=== PATIENT | female | born 1960 | race Caucasian/White ===

== ENCOUNTER 2024-12-07 11:37 | Emergency (ER) | payer BC, SELFPAY ==
[2024-12-07 11:43] VITALS: BP 138/87
[2024-12-07 11:49] VITALS: BP 138/87
[2024-12-07 12:00] VITALS: BP 128/84
--- NOTE | 2024-12-07 12:01 | ED.GENMED ---
History of Present Illness
General
Chief Complaint: Chest Pain
Source: patient
Exam Limitations: none
Time Seen by Provider: 12/07/24 11:54
History of Present Illness
History of Present Illness:
64yoF with history of hypertension, hyperlipidemia, and obesity presenting via EMS for evaluation of pain. 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
Pain started to radiate throughout her chest and into her back. She became clammy. She went to the bathroom and felt like her heart was racing. She told the dentist that she works with symptoms and was sent to the ED for evaluation. Patient was
given 4 baby aspirin in the ambulance and symptoms started to improve. She was then given nitroglycerin and pain resolved. She is currently asymptomatic. She denies any shortness of breath, nausea, dizziness, syncope. No prior history of heart
disease. Patient is supposed to be on a medication for blood pressure but does not take this. She denies any tobacco use or family history of heart disease.
Phy Exam
General Physical Exam
General Presentation: well appearing and no apparent distress
General Skin: warm and dry
General Habitus: normal
General Mental: alert
ENT Exam
ENT Exam: normocephalic
Cardiovascular Exam
Cardiovascular Exam: regular rate/rhythm, no edema, no murmur and normal peripheral pulses (2+ radial and PT pulses bilaterally)
Pulmonary Exam
Pulmonary Exam: lungs clear, no respiratory distress, no rales, no crackles, no rhonchi and no wheezing
Neurological Exam
Neurological Exam: alert
Priti Coma Scale
Eye Opening: Spontaneous
Verbal Response: Oriented
Motor Response: Obeys Commands
GCS Total Score: 15
Skin Exam
Skin Exam: normal color and warm/dry
Psychiatric Exam
Psychiatric Exam: normal mood/affect
Scores
Heart Score for Chest Pain Patients
STEMI patient?: No
History: Moderately Suspicious
ECG: Normal
Age: >45 - <65 years
Risk Factors: >/= 3 Risk Factors or History of CAD
Troponin: </= Normal Limit
Heart Score for Chest Pain Patients: 4
Heart Score Risk: 20.3% MACE over next 6 weeks
Course
Orders/Labs/Results
Orders:
Orders
12/07/24 11:41
Electrocardiogram (*1) Urgent
Reason for Study: Chest Pain
EKG- Treatment ONCE
O2 Therapy [RESP] Urgent
Titrate/Wean O2 to maintain O2 sat greater than (%): 90
Special Instructions: Maintain sats >/=90%
12/07/24 11:51
Complete Blood Count/With Diff Urgent
Comprehensive Metabolic Panel Urgent
Troponin I Urgent
12/07/24 12:01
Cardiac Monitoring- Treatment ONCE
CR Chest - 2 Views Urgent
Comment:
Reason For Exam: CP
12/07/24 12:44
EKG- Treatment ONCE
12/07/24 14:45
Electrocardiogram (*1) Urgent
Reason for Study: Chest Pain
12/07/24 15:12
Troponin I Urgent
Abnormal Lab Results
12/07/24
11:51
MCH 31.9 H pg
(27.0-31.0)
Absolute Monos (auto) 0.9 H 10^3/uL
(0.1-0.6)
Monocytes % 11.3 H %
(1.7-9.3)
BUN 23 H mg/dl
(7-17)
Glucose 114 H mg/dl
(70-99)
12/07/24 11:51
12/07/24 11:51
Vital Signs
Initial and Last Documented VS:
Initial Vital Signs
Temp Pulse Resp BP Pulse Ox
97.9 F 74 18 138/87 97
12/07/24 11:43 12/07/24 11:43 12/07/24 11:43 12/07/24 11:43 12/07/24 11:43
Last Documented Vital Signs
Temp Pulse Resp BP Pulse Ox
97.9 F 61 16 107/78 93
12/07/24 11:43 12/07/24 15:45 12/07/24 15:45 12/07/24 15:00 12/07/24 15:45
MDM/Problems Addressed
Differential Diagnosis Includes:
64yoF here with chest pain. Started while she was sitting at work. [place] a squeezing central pain that radiated to her back. Associated with clamminess. Now resolved after aspirin/NTG. VSS. She is well-appearing no acute distress. Exam reassuring.
Differential diagnosis includes but is not limited to: ACS, angina, arrhythmia, esophagitis, consider PE although vital signs are normal and symptoms have resolved
Initial ED plan: Check cardiac labs, EKG, and chest x-ray.
*EKG
Interpreted by ED Provider?: Yes
EKG Intrepretation Date: 12/07/24
Heart Rate: 71
Rate: normal
Rhythm: sinus
[place]: normal axis
Interval: normal interval
QRS Pattern: normal QRS
Ischemia: no ischemia
*Critical Care Note
Total Time (30-74mins, 75-104mins- exclusive of procedures): Not Applicable
Update Note
Update Note:
Labs overall unremarkable. EKG shows normal sinus rhythm without ischemic changes and troponin within normal limits. Chest x-ray is clear. Repeat troponin/EKG performed at 3 hours unchanged. Patient remains asymptomatic on multiple
reassessments. No indication for hospitalization. She was advised to follow-up with her PCP as well as cardiology. ED return precautions discussed. Patient in agreement with plan and is eager to be discharged.
ED Attending Note
-
Portions of this chart may have been created with voice recognition software.� Occasional wrong word or��sound alike� substitutions may have occurred due to the inherent limitations of voice recognition software.
Discharge Plan
Departure
Patient Disposition: Home (Routine Discharge)
Date of Disposition: 12/07/24
Time of Disposition: 16:13
Patient with high blood pressure during this ER visit?: No
Discharge Problem:
Chest pain
Instructions: Chest pain - Discharge instructions
Referrals:
Sandeep Vivar, DO [Active] -
UNKNOWN - PT DOES,NOT KNOW [Family Provider] -
Activity Restrictions/Additional Instructions:
Please call tomorrow to schedule a follow-up appointment with your family doctor and cardiology. Return to the ER with any new or worsening symptoms.
Interventions
Interventions:
*Risk Screen - Suicide Last Done: 12/07/24 11:43
*General Assessment Last Done: 12/07/24 11:43
*Neglect/Abuse Screening Last Done: 12/07/24 11:43
*ED- Fall Risk Assessment Last Done: 12/07/24 11:43
*ED COVID-19 Vaccine History Last Done: 12/07/24 11:43
*Nursing Disposition Last Done: 12/07/24 16:36
ED- Cardiac Assessment Last Done: 12/07/24 11:50
Discharge Date and Time
Discharge Date/Time: 12/07/24 16:40
Print Language: NICARAGU[place]
[2024-12-07 12:08] LABS: % Basophils 0.6 % (0-2); % Eosinophils 1.3 % (0-6); % Immature Granulocytes 0.3 % (0-0.5); % Monocytes 11.3 % (1.7-9.3); % Neutrophils 63.5 % (42.2-75.2); Absolute Basophils 0.1 10^3/uL (0-0.2); Absolute Eosinophils 0.1 10^3/uL (0-0.7); Absolute Lymphocytes 1.8 10^3/uL (1.2-3.4); Absolute Monocytes 0.9 10^3/uL (0.1-0.6); Hematocrit 43.3 % (37.0-47.0); Hemoglobin 14.8 g/dL (12.0-16.0); Mean Corp Hgb Conc. 34.2 g/dL (33.0-37.0); Mean Corpuscular Hgb 31.9 pg (27.0-31.0); Mean Corpuscular Volume 93.3 fL (81.0-99.0); Mean Platelet Volume 9.4 fL (7.4-10.4); Nucleated Red Blood Cells % 0 %; Platelet Count 323 10^3/uL (130-400); Red Blood Cell Count 4.64 10^6/uL (4.20-5.40); Red Cell Dist. Width 12.6 % (11.5-14.5); White Blood Cell Count 7.8 10^3/uL (4.8-10.8)
[2024-12-07 12:21] LABS: ALT (SGPT) 16 U/L (0-35); AST (SGOT) 21 U/L (14-36); Albumin 4.3 g/dl (3.5-5.0); Alkaline Phosphatase 67 U/L (38-126); Blood Urea Nitrogen 23 mg/dl (7-17); Calcium 9.3 mg/dl (8.4-10.2); Carbon Dioxide 26 mmol/L (22-30); Chloride 104 mmol/L (98-107); Estimated Creatinine Clearance 73 ml/min; Glucose 114 mg/dl (70-99); Potassium 4.3 mmol/L (3.5-5.1); Sodium 138 mmol/L (135-145); Total Bilirubin 0.7 mg/dl (0.2-1.3); Total Protein 6.9 g/dl (6.3-8.2); eGFR > 60.00
[2024-12-07 12:35] LABS: Troponin I < 0.012 ng/ml
[2024-12-07 13:36] VITALS: BP 135/77
[2024-12-07 14:00] VITALS: BP 114/73
[2024-12-07 15:00] VITALS: BP 107/78
[2024-12-07 15:56] LABS: Troponin I < 0.012 ng/ml
== END 2024-12-07 16:40 | disposition home or self-care (01) ==
LOC: EMR 11:37
PROVIDERS: Physician Assistant; EMERGENCY PHYSICIAN Emergency Medicine
DX: R07.89 Other chest pain (principal); I10 Essential (primary) hypertension; E78.00 Pure hypercholesterolemia, unspecified; E66.9 Obesity, unspecified; I25.10 Atherosclerotic heart disease of native coronary artery without angina pectoris
CPT/HCPCS: 99283; 71046; 80053; 84484; 85025; 93005